=== PATIENT | male | born 1955 | race Caucasian/White ===

== ENCOUNTER 2020-09-12 12:34 | Emergency (ER) | payer MEDICARE, OTHER ==
[~2020-09-12] VITALS: Ht 180.3 cm; Wt 132.4 kg
[~2020-09-12 12:34] MED LIST: AMIO400T5 PO; ASPI-963 PO; CLOP75TA52 PO; DOCU-131 PO; FURO-92 PO; HYDR-3248 PO; METO-93 PO; METO50TA82 PO; NITR0.4T28 SL; POTA10TA11 PO; SIMV20TA19 PO
[2020-09-12 12:51] VITALS: BP 179/96
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
[2020-09-12] MEDS ORDERED: DIPH,PERTUSS(ACELL),TET VAC/PF 0.5 ML IM-VACC ONE ×2 (13:30→13:31)
--- NOTE | 2020-09-12 13:34 | NUR ---
PODIATRIC MEDICINE DOCTOR AT BEDSIDE FOR WOUND CARE
--- NOTE | 2020-09-12 14:25 | NUR ---
DISCHARGE INSTRUCTIONS REVIEWED
== END 2020-09-12 14:33 | disposition home or self-care (01) ==
LOC: ED 14:15
DX: T24.101A Burn of first degree of unspecified site of right lower limb, except ankle and foot, initial encounter (principal); L03.115 Cellulitis of right lower limb; T31.0 Burns involving less than 10% of body surface; X08.8XXA Exposure to other specified smoke, fire and flames, initial encounter; Y93.89 Activity, other specified; Y92.89 Other specified places as the place of occurrence of the external cause; Y99.8 Other external cause status
CPT/HCPCS: 16020; 90471; 90715

== ENCOUNTER 2020-12-22 12:28 | Emergency (ER) | payer MEDICARE ==
[~2020-12-22] VITALS: Ht 180.3 cm; Wt 120.6 kg
[2020-12-22] MEDS ORDERED: DILTIAZEM 5 MG/ML, 5ML IVPush STA (13:01)
[2020-12-22 13:11] LABS: BASOPHILS % (AUTO) 1 % (0-1); EOSINOPHILS % (AUTO) 1 % (1-7); LYMPHOCYTES % (AUTO) 27 % (22-44); MEAN CORPUSCULAR HEMOGLOBIN 29.6 pg (27.5-34.5); MEAN CORPUSCULAR HGB CONC 33.4 g/dL (33.2-36.2); MEAN PLATELET VOLUME 7.5 fL (7.4-10.4); MONOCYTES % (AUTO) 10 % (2-9); NEUTROPHILS % (AUTO) 62 % (42-75); PLATELET COUNT 251 x10^3/uL (130-400); RED BLOOD COUNT 5.51 x10^6/uL (4.38-5.82); RED CELL DISTRIBUTION WIDTH 15.2 % (9.4-14.8)
[2020-12-22 13:13] LABS: ALANINE AMINOTRANSFERASE 18 U/L (12-78); ALBUMIN 3.3 g/dL (3.4-5.0); ANION GAP 9 mmol/L (5-15); CALCIUM 9.4 mg/dL (8.5-10.1); CHLORIDE 108 mmol/L (98-107); CREATININE 1.84 mg/dL (0.7-1.3)
[2020-12-22] MEDS ORDERED: DILTIAZEM 5 MG/ML, 5ML ONE (13:13)
[2020-12-22] MEDS ORDERED: ASPIRIN 81 MG TABLET CHEW ONE (13:13)
[2020-12-22 13:18] LABS: ALKALINE PHOSPHATASE 55 U/L (45-117); BILIRUBIN,TOTAL 1.6 mg/dL (0.2-1.0); T4 (THYROXINE) 9.3 mcg/dL (4.5-12.1); TOTAL PROTEIN 7.8 g/dL (6.4-8.2); TROPONIN I < 0.015 ng/mL (0.000-0.045)
[2020-12-22 13:30] VITALS: BP 108/62
[2020-12-22] MEDS ORDERED: SODIUM CHLORIDE 0.9% 1,000ML IVBOLUS ONE (13:30)
[2020-12-22] MEDS ORDERED: SODIUM CHLORIDE FLUSH 10ML SYR IVF ONE (13:30)
[2020-12-22] MEDS ORDERED: ASPIRIN 81 MG TABLET CHEW PO ONE (13:30)
[2020-12-22] MEDS ORDERED: APIXABAN 5 MG TABLET ONE (14:06)
[2020-12-22] MEDS ORDERED: APIXABAN 5 MG TABLET PO ONE (21:00)
== END 2020-12-22 15:30 | disposition home or self-care (01) ==
LOC: ED 14:20
DX: I48.0 Paroxysmal atrial fibrillation (principal); Z20.822 Contact with and (suspected) exposure to COVID-19; R00.2 Palpitations; R42 Dizziness and giddiness; R06.00 Dyspnea, unspecified; R00.0 Tachycardia, unspecified; I10 Essential (primary) hypertension; Z95.1 Presence of aortocoronary bypass graft
CPT/HCPCS: 36415; 71045; 80053; 83735; 84436; 84443; 84484; 85025; 93005; 96361; 96374; 99285; J7030; U0003; U0005